=== PATIENT | male | born 1990 | race Caucasian/White ===

== ENCOUNTER 2018-05-06 11:27 | Emergency (ER) | payer MEDICAID ==
[2018-05-06] MEDS: predniSONE 20 MG TAB PO (12:10)
[2018-05-06] MEDS: ALBUTEROL 0.083% (NEB) 2.5 MG/3 ML AMP HHN (12:34)
== END 2018-05-06 13:22 | disposition home or self-care (01) ==
LOC: FTE 11:27
DX: J45.901 Unspecified asthma with (acute) exacerbation (principal)
CPT/HCPCS: 94664; 99283-25

== ENCOUNTER 2018-05-17 14:04 | Emergency (ER) | payer MEDICAID ==
[2018-05-17] MEDS: DEXAMETHASONE 10 MG/ML 1 ML INJ IM (15:04)
[2018-05-17] MEDS: IPRATROPIUM (NEB) 0.5 MG/2.5 ML AMP NEB (15:05)
[2018-05-17] MEDS: ALBUTEROL 0.083% (NEB) 2.5 MG/3 ML AMP NEB (15:05)
== END 2018-05-17 17:02 | disposition home or self-care (01) ==
LOC: FTE 14:04
DX: J45.41 Moderate persistent asthma with (acute) exacerbation (principal); Z87.891 Personal history of nicotine dependence
CPT/HCPCS: 94664; 96372; 99284-25